=== PATIENT | male | born 1965 | race Hispanic/Latino ===

== ENCOUNTER 2024-09-28 09:30 | Inpatient (IN) | payer OTHER ==
[2024-09-21 12:02] LABS: APPEARANCE,URINE CLOUDY (CLEAR); BILIRUBIN,URINE NEGATIVE (NEGATIVE); COLOR,URINE YELLOW (YELLOW); GLUCOSE, URINE (UA) NEGATIVE (NEGATIVE); KETONES,URINE NEGATIVE (NEGATIVE); LEUKOCYTE ESTERASE ,URINE NEGATIVE Leu/uL (NEGATIVE); NITRATE,URINE NEGATIVE (NEGATIVE); OCCULT BLOOD,URINE NEGATIVE (NEGATIVE); PH,URINE 5.5 (5.0-8.0); PROTEIN,URINE 30 mg/dL (NEGATIVE); UROBILINOGEN,URINE 0.2 mg/dL (0.2-1.0)
[2024-09-21 12:36] LABS: INR 0.97 (0.85-1.15); PROTHROMBIN TIME 10.9 SEC (9.6-11.6)
[2024-09-21 12:38] LABS: PARTIAL THROMBOPLASTIN TIME 27.6 SEC (26.3-35.5)
[2024-09-21 12:44] VITALS: BP 156/86; PULSE 60; RESP 15; TEMP 97.9
--- NOTE | 2024-09-21 12:46 | NUR ---
report called dr moura to verify stop date for eliquis. as per 2 days is ok. pt notified
[2024-09-21 12:47] LABS: ADD UA MICROSCOPIC YES
[2024-09-21 12:50] LABS: MUCUS,URINE MANY LPF (None Seen); SQUAMOUS EPITHELIAL CELL,UR RARE /HPF (0-2)
[~2024-09-28] VITALS: Ht 167.6 cm; Wt 136.1 kg
[2024-09-28] VITALS (23 sets, daily range): BP systolic 116–146; BP diastolic 59–78; PULSE 52–61; RESP 15–20; TEMP 97.7–98.6; O2SAT 96–100
[~2024-09-28 09:30] MED LIST: AMIO200T68 PO; APIX5TAB PO; ATOR10TA69 PO; vit d PO
[2024-09-28] MEDS: ceFAZolin SODIUM 1 GM VIAL ONE (10:26)
[2024-09-28] MEDS: ceFAZolin SODIUM 2 GM VIAL ONE (10:26)
[2024-09-28] MEDS: LACTATED RINGERS 1000ML 1,000 ML IV ONE (10:26)
[2024-09-28] MEDS ORDERED: LOSA100T59 PO (10:29)
[2024-09-28] MEDS ORDERED: AMLO-258 PO (10:29)
[2024-09-28] MEDS ORDERED: METO25TA6 PO (10:29)
[2024-09-28] MEDS: acetaMINOPHEN 100 ML ONE (10:41)
[2024-09-28] MEDS: FAMOTIDINE 20MG VIAL IV ONE (10:41)
[2024-09-28] MEDS ORDERED: ROPivacaine 0.5% 5MG/ML 30ML ONE ×2 (10:42→15:08)
[2024-09-28] MEDS ORDERED: ketaMINE 50MG/ML SYRINGE 50 MG/ML DISP.SYRIN ONE (10:43)
[2024-09-28] MEDS ORDERED: LIDOCAINE HCL-MPF 2% 10ML AMP IJ ONE (10:44)
[2024-09-28] MEDS ORDERED: rocuRONium bROMide 10MG/1ML 5ML VL ONE ×3 (10:45→15:09)
[2024-09-28] MEDS ORDERED: FENTanyl CITRate PF 50 MCG/1 ML 2ML VIAL ONE ×3 (10:45→16:20)
[2024-09-28] MEDS ORDERED: proPOFol 10 MG/ML 20ML VIAL IV ONE (10:45)
[2024-09-28] MEDS ORDERED: ceFAZolin SODIUM 1 GM VIAL ONE (11:47)
[2024-09-28] MEDS ORDERED: TRANEXAMIC ACID 1000MG/10ML ONE ×2 (11:47)
[2024-09-28] MEDS ORDERED: VANCOMYCIN 500MG+NS 100ML 100 ML IV ONE (12:51)
[2024-09-28] MEDS: TRANEXAMIC ACID 1000MG/10ML IV ONE (12:52)
[2024-09-28] MEDS ORDERED: ePHEDrine SULFate 50 MG/ML AMPULE ONE (12:53)
[2024-09-28] MEDS ORDERED: GLYCOPYRROLATE 0.2 MG/ML 5 ML VIAL ONE (14:38)
[2024-09-28] MEDS: SUGAMMADEX SODIUM 200 MG/2 ML VIAL IV ONE (15:59)
[2024-09-28] MEDS ORDERED: PoTASSium chloRIDE 20MEQ/100ML 100 ML IV PRN (16:00)
[2024-09-28] MEDS ORDERED: PoTASSium chl 10% ELIXIR 20MEQ 20 MEQ/15 ML UDCUP PO PRN (16:00)
[2024-09-28] MEDS: acetaMINOPHEN 500 MG TABLET PO SCH (16:00)
[2024-09-28] MEDS ORDERED: DiphenhydrAMINE HCL 50 MG/ML VIAL IVP PRN (16:00)
[2024-09-28] MEDS ORDERED: PoTASSium chloRIDE 20MEQ ER 20 MEQ ERTAB PO PRN (16:00)
[2024-09-28] MEDS ORDERED: TEMAZepam 15 MG CAPSULE PO PRN (16:00)
[2024-09-28] MEDS ORDERED: FERROUS FUMARATE 324 MG TABLET PO PRN (16:00)
[2024-09-28] MEDS ORDERED: ondanSETRON 4MG INJ IVP PRN (16:00)
--- NOTE | 2024-09-28 16:12 | HMCIMG ---
HIP UNILAT 4VW RIGHT REASON: ORIF RIGHT [place], SX COMPARISON: None TECHNIQUE: 4 surgical spot views are obtained documenting a right total hip joint prosthesis placement. Fluoroscopy time was 33 seconds. IMPRESSION: 1. Documentation of right hip joint replacement procedure.
--- NOTE | 2024-09-28 16:18 | OP ---
Operative Note: DATE OF PROCEDURE: 09/28/24 SURGEON: JEREMIAS SMITH MD REHAB ASSISTANT: [JOSE VYAS CFA] ANESTHESIA: [General anesthesia plus regional block] ANESTHESIOLOGIST/CAR WIPER: [Low Zhao, CAR WIPER's] PREOPERATIVE DIAGNOSIS: [Right hip osteoarthritis] POSTOPERATIVE DIAGNOSIS: [Right hip osteoarthritis] IMPLANTS: [BIOMET taper lock femur size 10. G7 cup size 54. Hi wall acetabular liner size 36. Standard 36 femoral head] PROCEDURE: [Right total hip arthroplasty] ESTIMATED BLOOD LOSS: [500 mL] INDICATIONS: [The patient is a 58-year-old female with history of severe pain to the right hip secondary to severe arthrosis. The patient has been treated conservatively the past with no improvement and he has been admitted for a right total hip arthroplasty, procedure for which he is already familiar, knowing the risks, benefits and possible complications and agreed to sign the consent form] DESCRIPTION OF PROCEDURE: [After adequate general anesthesia was achieved and regional block obtained the patient was placed in the left lateral decubitus with the use of the beanbag and hip holders. The right lower extremity was prepped and draped in the usual manner after x-rays taken with the C-arm were used to check the position of the pelvis. After anatomic landmarks were identified we proceeded to make an incision in the skin centered on the greater trochanter and with a slight curve posteriorly followed by dissection of the subcutaneous tissue with the use of the Bovie cautery. The tensor fascia owen and gluteus ramy fascia were then opened longitudinally and the fibers of the gluteus muscle were split manually entering into the deep space applying then the Charnley retractor. The greater trochanter was exposed and a bone infusion needle was then inserted through this needle we proceeded to infused a solution of 500 mg of vancomycin diluted in 50 mL of normal saline solution. The bone infusion needle was removed. The posterior border of the gluteus medius was identified and elevated and a curved Hohmann retractor was inserted underneath to be able to expose the gluteus minimus and short external rotators. The interval between the piriformis and gluteus minimus was open with the use of the Bovie cautery and then the rotators and capsule were detached from their femoral neck insertion and retracted posteriorly entering into the hip joint. We then proceeded to dislocate the hip by flexing the hip and then internally rotating it and after retractors were applied to the base of the femoral neck we proceeded to use the oscillating saw to cut the neck at this level. We then proceeded to use a box osteotome to enter the canal followed by insertion of the canal finder and then we proceeded to broach from size up to above-mentioned size. At this point we removed the last broach and packed the canal for hemostasis and after the retractors were removed we proceeded then to bring the hip into extension. Hohmann retractors were then applied anteriorly and posteriorly to the acetabulum removing then the labrum and foveal tissue. We proceeded to ream the acetabulum medializing it obtaining adequate cortico- cancellous bone. After irrigation of the acetabulum was completed we proceeded then to apply the final component and x-rays were taken correcting the orientation of the acetabulum to its final position. Then a trial liner was inserted as well as a trial femur and then we proceeded to apply the trial femoral heads reducing the hip and taken x-rays until we identify the adequate size component using the marker to check the length and offset as well as clinically using the shuck test and measuring the leg length. Once we were satisfied we proceeded to remove the components from the femur and the trial liner after dislocating the hip and after copious irrigation of the joint was completed we then proceeded to apply the final liner followed by the insertion of the final femoral stem and femoral head. Once the hip was reduced we used a marker once again and the leg length and offset were normal and clinically the patient had normal length, negative shuck test and x-rays reveal adequate leg length compared to the opposite hip. The joint was then copiously irrigated with jet lavage once again and we then proceeded to take final x-rays and then to close the wound first with approximation of the capsule with #1 Vicryl simple stitches followed by approximation of the short external rotators with #2 PDS suture passing the sutures through the bone. The Charnley retractor was then removed and the gluteus ramy fascia was closed with a #1 Vicryl running stitch and the tensor fascia owen with #1 Vicryl crossed stitches. The subcutaneous tissue was with a deep layer consisting of Vicryl sutures and a superficial layer was closed with #2 Monocryl inverted stitches and the skin was closed with 3-0 Monocryl subcuticularly. A suction dressing was then applied t o the incision and the drapes were then removed the patient being placed in the supine position. Leg length was checked and noted to be adequate. The patient was then transferred to a hospital bed and taken to recovery room for follow-up by anesthesia. There were no complications during the procedure.] JEREMIAS SMITH MD Sep 28, 2024 16:18
--- NOTE | 2024-09-28 16:42 | NUR ---
PT eval attempted. Pt continues in surgery as of 1641. PT team to follow-up.
[2024-09-28] MEDS: ketOROlac 15MG/ML VIAL (15MG/ML) IV PRN (19:13)
[2024-09-28] MEDS: atorVAStatin 10 MG TABLET PO SCH (20:06)
[2024-09-28] MEDS: metoPROLOL tartRATE 25 MG TAB PO SCH (20:06)
[2024-09-28] MEDS: ceFAZolin SODIUM 2 GM VIAL IVPB SCH (20:07)
[2024-09-28] MEDS: 0.9%NACL 1000ML 1,000 ML IV SCH (20:08)
[2024-09-29] VITALS (8 sets, daily range): BP systolic 102–119; BP diastolic 49–63; PULSE 56–70; RESP 16–20; TEMP 98–99.1; O2SAT 94–100
[2024-09-29] MEDS: OXYcodONE HCL 5 MG TAB PO PRN ×2 (05:03→09:03)
[2024-09-29 05:16] LABS: CREATININE 0.9 mg/dL (0.5-1.3); POTASSIUM 3.9 mmol/L (3.5-5.1)
[2024-09-29 05:18] LABS: HEMATOCRIT 35.6 % (42-54); MEAN CORPUSCULAR HEMOGLOBIN 31.5 pg (27.0-33.0); MEAN CORPUSCULAR HGB CONC 33.4 g/dL (32.0-36.0); MEAN CORPUSCULAR VOLUME 94.2 fL (79-99); RED BLOOD CELL COUNT(AUTO) 3.78 MIL/uL (4.50-6.20); RED CELL DISTRIBUTION WIDTH 13.2 % (11.0-15.5); WHITE BLOOD COUNT (AUTO) 10.2 K/uL (4.8-10.8)
[2024-09-29] MEDS: CALCIUM CARB 500MG PO PRN (05:39)
--- NOTE | 2024-09-29 07:58 | PN ---
Ortho postop day one. This morning patient is awake alert oriented. He is in good spirits although he reports he had a rough night. He is already out of bed seated in a chair enjoying his breakfast and his is at his bedside. Vital signs are stable. He has low-grade temperature of 99.0 I have reinforce incentive spirometry. Laboratory results reviewed. Noted to have a drop in hemoglobin and hematocrit as expected after total hip arthroplasty patient is asymptomatic we will address per protocol as necessary. Operative findings discussed with the patient. Dressing is intact. Distal neurovascular intact. Negative Homans. Ice is present to the operative site. Voiding on his own without difficulty and already passing gas but yet to have a bowel movement. Patient voiced to me that he had considered going home for home health and is now reconsidering and wanting to be referred to inpatient rehab. We will direct this to case management. Therapy unable to ambulate yesterday and is pending therapy this morning. Assessment: Status post right total hip arthroplasty. Asymptomatic acute postoperative blood loss anemia. Plan: Continue with Dr. Paulino total hip arthroplasty protocol and discharge planning Asymptomatic acute postoperative blood loss anemia addressed with protocol as necessary Vitals/Labs Vital Signs Date Time Temp Pulse Resp B/P (MAP) Pulse Ox O2 Delivery O2 Flow Rate FiO2 09/29/24 04:00 99.0 59 20 113/59 95 Nasal Cannula 3.0 09/28/24 20:00 32 Laboratory Tests 09/29/24 04:49 Medications Current Medications Cefazolin Sodium 1 gm STK-MED ONCE .ROUTE; Start 09/28/24 at 09:40; Stop 09/28/24 at 09:41; Status DC Cefazolin Sodium 2 gm STK-MED ONCE .ROUTE; Start 09/28/24 at 09:40; Stop 09/28/24 at 09:41; Status DC Lactated Ringer's 1,000 ml @ As Directed STK-MED ONCE IV Last administered on 09/28/24at 10:26; Start 09/28/24 at 09:40; Stop 09/28/24 at 09:41; Status DC Acetaminophen 100 ml @ As Directed STK-MED ONCE .ROUTE; Start 09/28/24 at 10:41; Stop 09/28/24 at 10:41; Status DC Famotidine 20 mg STK-MED ONCE IV; Start 09/28/24 at 10:41; Stop 09/28/24 at 10:41; Status DC Ropivacaine 150 mg STK-MED ONCE .ROUTE; Start 09/28/24 at 10:42; Stop 09/28/24 at 10:43; Status DC Ketamine HCl 50 mg STK-MED ONCE .ROUTE; Start 09/28/24 at 10:43; Stop 09/28/24 at 10:43; Status DC Lidocaine HCl 1 ml STK-MED ONCE IJ; Start 09/28/24 at 10:44; Stop 09/28/24 at 10:45; Status DC Propofol 200 mg STK-MED ONCE IV; Start 09/28/24 at 10:45; Stop 09/28/24 at 10:45; Status DC Rocuronium [place] 50 mg STK-MED ONCE .ROUTE; Start 09/28/24 at 10:45; Stop 09/28/24 at 10:45; Status DC Fentanyl Citrate 100 mcg STK-MED ONCE .ROUTE; Start 09/28/24 at 10:45; Stop 09/28/24 at 10:46; Status DC Tranexamic Acid 1,000 mg STK-MED ONCE .ROUTE; Start 09/28/24 at 11:47; Stop 09/28/24 at 11:47; Status DC Tranexamic Acid 1,000 mg STK-MED ONCE .ROUTE; Start 09/28/24 at 11:47; Stop 09/28/24 at 11:48; Status DC Cefazolin Sodium 1 gm STK-MED ONCE .ROUTE; Start 09/28/24 at 11:47; Stop 09/28/24 at 11:48; Status DC Vancomycin HCl 100 ml @ As Directed STK-MED ONCE IV; Start 09/28/24 at 12:51; Stop 09/28/24 at 12:51; Status DC Ephedrine Sulfate 50 mg STK-MED ONCE .ROUTE; Start 09/28/24 at 12:53; Stop 09/28/24 at 12:54; Status DC Rocuronium [place] 50 mg STK-MED ONCE .ROUTE; Start 09/28/24 at 13:01; Stop 09/28/24 at 13:01; Status DC Tranexamic Acid 1,000 mg STK-MED ONCE IV Last administered on 09/28/24at 12:52; Start 09/28/24 at 12:52; Stop 09/28/24 at 14:05; Status DC Glycopyrrolate 1 mg STK-MED ONCE .ROUTE; Start 09/28/24 at 14:38; Stop 09/28/24 at 14:39; Status DC Ropivacaine 150 mg STK-MED ONCE .ROUTE; Start 09/28/24 at 15:08; Stop 09/28/24 at 15:08; Status DC Rocuronium [place] 50 mg STK-MED ONCE .ROUTE; Start 09/28/24 at 15:09; Stop 09/28/24 at 15:09; Status DC Sodium Chloride 1,000 ml @ 100 mls/hr Q10H IV Last administered on 09/29/24at 04:25; Start 09/28/24 at 16:00; Stop 09/29/24 at 15:59 Polyethylene Glycol 17 gm DAILY PO; Start 09/29/24 at 09:00; Stop 10/29/24 at 08:59 Bisacodyl 10 mg DAILY PRN RC; Start 10/01/24 at 16:00; Stop 10/31/24 at 15:59 Ketorolac Tromethamine 15 mg Q6H PRN IV Last administered on 09/28/24at 19:13; Start 09/28/24 at 16:00; Stop 10/03/24 at 15:59 Ferrous Fumarate 324 mg DAILY PRN PO; Start 09/28/24 at 16:00; Stop 10/28/24 at 15:59 Temazepam 15 mg HS PRN PO; Start 09/28/24 at 16:00; Stop 10/28/24 at 15:59 Calcium Carbonate 500 mg Q12H PRN PO Last administered on 09/29/24at 05:39; Start 09/28/24 at 16:00; Stop 10/28/24 at 15:59 Diphenhydramine HCl 25 mg Q6H PRN IVP; Start 09/28/24 at 16:00; Stop 10/28/24 at 15:59 Ondansetron HCl 4 mg Q6H PRN IVP; Start 09/28/24 at 16:00; Stop 10/28/24 at 15:59 Cefazolin Sodium 2 gm Q8H IVPB Last administered on 09/29/24at 04:25; Start 09/28/24 at 21:00; Stop 09/29/24 at 05:01; Status DC Potassium Chloride 100 ml @ 100 mls/hr AD PRN IV; Start 09/28/24 at 16:00; Stop 10/28/24 at 15:59 Potassium Chloride 20 meq AD PRN PO; Start 09/28/24 at 16:00; Stop 10/28/24 at 15:59 Potassium Chloride 20 meq AD PRN PO; Start 09/28/24 at 16:00; Stop 10/28/24 at 15:59 Oxycodone HCl 5 mg Q4H PRN PO Last administered on 09/29/24at 05:03; Start 09/28/24 at 16:00; Stop 10/05/24 at 15:59 Oxycodone HCl 10 mg Q4H PRN PO; Start 09/28/24 at 16:00; Stop 10/05/24 at 15:59 Tramadol HCl 50 mg Q6H PRN PO; Start 09/28/24 at 16:00; Stop 10/03/24 at 15:59 Acetaminophen 1,000 mg Q8H PO Last administered on 09/29/24at 07:40; Start 09/28/24 at 16:00; Stop 10/28/24 at 15:59 Fentanyl Citrate 100 mcg STK-MED ONCE .ROUTE; Start 09/28/24 at 16:08; Stop 09/28/24 at 16:09; Status DC Fentanyl Citrate 100 mcg STK-MED ONCE .ROUTE; Start 09/28/24 at 16:20; Stop 09/28/24 at 16:25; Status DC Amiodarone HCl 200 mg AM PO; Start 09/29/24 at 09:00; Stop 10/29/24 at 08:59 Apixaban 5 mg BID PO; Start 09/29/24 at 09:00; Stop 10/29/24 at 08:59 Atorvastatin Calcium 10 mg HS PO Last administered on 09/28/24at 20:06; Start 09/28/24 at 21:00; Stop 10/28/24 at 20:59 Losartan Potassium 100 mg DAILY PO; Start 09/29/24 at 09:00; Stop 10/29/24 at 08:59 Metoprolol Tartrate 25 mg BID PO Last administered on 09/28/24at 20:06; Start 09/28/24 at 21:00; Stop 10/28/24 at 20:59 Amlodipine Besylate 10 mg DAILY PO; Start 09/29/24 at 09:00; Stop 10/29/24 at 08:59 Home Med VIT D 25MCG QODAY PO; Start 09/30/24 at 09:00; Stop 10/30/24 at 08:59 YENNY MÉNDEZ NP Sep 29, 2024 07:58
[2024-09-29] MEDS: LoSARTan 100 MG TABLET PO SCH (09:02)
[2024-09-29] MEDS: polyETHYLene GLYCol 3350 17 GM POWD.PACK PO SCH (09:02)
[2024-09-29] MEDS: AMIOdarone 200 MG TABLET PO SCH (09:02)
[2024-09-29] MEDS: amLODIPine 5 MG TAB PO SCH (09:03)
[2024-09-29] MEDS: APIXaban 5 MG TABLET PO SCH (09:04)
--- NOTE | 2024-09-29 09:30 | NUR ---
Order received and patient seen and evaluated. Patient required maximal assistance to stand from chair this morning. Once up, patient required moderate assistance to walk secondary to left lower extremity weakness as well as RLE surgery. Recommend acute rehab post hospital. Addendum: 09/29/24 at 1008 by MAGDALENE DUMONT PT Amended: Links added.
--- NOTE | 2024-09-29 12:21 | NUR ---
DCP CM MET WITH PT THIS MORNING ASSESSMENT DONE. PATIENT IS INDEPENDENT PRIOR TO SURGERY, LIVES AT HOME WITH HIS . PATIENT VERBALIZED HE HAS A STANDARD WALKER, ROLLATOR WALKER, CANE, BPM. DENIES ANY OTHER EQUIPMENT/SERVICES. USES [facility]. FEELS SAFE TO GO BACK HOME, STILL DRIVE, ABLE TO ASSIST WITH TRANSPORTATION AND NEEDS NECESSARY. PT REQUESTING REHABILITATION AT [facility] AFTER DISCHARGE FOR REHAB. INFORMED PATIENT IF [facility] DOESN'T HAVE A BED WOULD HE CONSIDER STR/[facility], PT AGREEABLE FOR STR IF NO BED AT [facility], PT REQUEST CM TO INFORM PT FIRST BEFORE SENDING TO [facility] IF THERE'S NO BED. CONSENT SIGNED JOS[facility] FOR #1 [facility] AND #2 STR. DCP IRU ONCE APPROVED. CM SENT ORDER, CLINICALS, PT TO [facility] AND [facility] W/[facility] VIA SECURE FAX AND EMAIL, CONFIRMATION RECEIVED. CM SPOKE TO [facility], VERIFY IF THERE'S BED AVAILABLE TODAY/TOMORROW, PER [facility] THERE'S BED AVAILABLE TODAY AND TOMORROW. WILL COME EVALUATE PT AND SENT TO [facility] FOR AUTH ONCE THEIR MD ACCEPT PT. PT PENDING APPROVAL AND ACCEPTANCE. MOT SEMI-FILLED, PENDING TO COMPLETE ONCE AUTH RECEIVED. EMS FILLED OUT, PENDING TO FAX W/CURRENT DATE ONCE PT READY TO DC. PRIMARY NURSE JAVED MADE AWARE. DR SMITH UPDATED. CM TO CONTINUE TO FOLLOW UP. Addendum: 09/29/24 at 1226 by ELVIS SILVA LVN CM Amended: Links added.
--- NOTE | 2024-09-29 13:00 | NUR ---
ORTHO COORDINATOR: TEACHING REGARDING DVT AND PNEUMONIA PREVENTION, PAIN EXPECTATIONS AND PAIN MANAGEMENT. PATIENT UP TO CHAIR. NASAL CANNULA AT 2 LITERS. SCD SLEEVES AND MACHINE PRESENT IN ROOM. INCENTIVE SPIROMETER AT BEDSIDE. PATIENT INSTRUCTED TO UTILIZED INCENTIVE SPIROMETER AT THE MINIMUM EVERY 2 HOURS, 10 TIMES. RATIONALE PROVIDED. PATIENT VERBALIZED UNDERSTANDING. PATIENT RETURN DEMONSTRATED PROPER FOOT FLEXION AND EXTENSION EXERCISES, RATIONALE PROVIDED. NUMERIC PAIN SCALE REVIEWED. PAIN EXPECTATIONS SET. DISCUSSED PAIN MEDICATION AVAILABLE FOR PAIN FROM 1-10 AND THAT ALL PAIN MEDICATION NEEDED TO BE REQUESTED. PATIENT VERBALIZED UNDERSTANDING. PATIENT PLANS INPATIENT REHAB. NO ADDITIONAL QUESTIONS/CONCERNS AT THIS TIME. Addendum: 09/29/24 at 1713 by YADIRA MERCEDES RN RN REVIEWED USE OF ICE PACK. ICE PACK PROVIDED.
[2024-09-29] MEDS: traMADol HCL 50 MG TABLET PO PRN (13:03)
[2024-09-30 07:50] VITALS: BP 112/58; PULSE 74; RESP 18; TEMP 101.4
[2024-09-30 08:15] VITALS: O2SAT 95
--- NOTE | 2024-09-30 08:16 | PN ---
The patient is postop day 2., status post right total hip arthroplasty. His vital signs remained stable but he had a spike of temp today of 101. He is having moderate amount of pain in the thigh area. The pain is adequately controlled. No laboratories pending. The patient is awake, alert and oriented this morning sitting in the chair. His respiratory effort is normal he is in no distress. His dressing is intact. Distal neurovascular exam is normal. Assessment: Status post right total hip arthroplasty. Plan: The patient is awaiting approval from the [facility] to go to inpatient rehab. Continue with physical therapy and rehabilitation. Continue pain management and he has resumed his chronic anticoagulation therapy. Vitals/Labs Vital Signs Date Time Temp Pulse Resp B/P (MAP) Pulse Ox O2 Delivery O2 Flow Rate FiO2 09/30/24 07:50 101.5 74 18 112/58 95 Room Air 0.0 09/29/24 19:05 21 Medications Current Medications Cefazolin Sodium 1 gm STK-MED ONCE .ROUTE; Start 09/28/24 at 09:40; Stop 09/28/24 at 09:41; Status DC Cefazolin Sodium 2 gm STK-MED ONCE .ROUTE; Start 09/28/24 at 09:40; Stop 09/28/24 at 09:41; Status DC Lactated Ringer's 1,000 ml @ As Directed STK-MED ONCE IV Last administered on 09/28/24at 10:26; Start 09/28/24 at 09:40; Stop 09/28/24 at 09:41; Status DC Acetaminophen 100 ml @ As Directed STK-MED ONCE .ROUTE; Start 09/28/24 at 10:41; Stop 09/28/24 at 10:41; Status DC Famotidine 20 mg STK-MED ONCE IV; Start 09/28/24 at 10:41; Stop 09/28/24 at 10:41; Status DC Ropivacaine 150 mg STK-MED ONCE .ROUTE; Start 09/28/24 at 10:42; Stop 09/28/24 at 10:43; Status DC Ketamine HCl 50 mg STK-MED ONCE .ROUTE; Start 09/28/24 at 10:43; Stop 09/28/24 at 10:43; Status DC Lidocaine HCl 1 ml STK-MED ONCE IJ; Start 09/28/24 at 10:44; Stop 09/28/24 at 10:45; Status DC Propofol 200 mg STK-MED ONCE IV; Start 09/28/24 at 10:45; Stop 09/28/24 at 10:45; Status DC Rocuronium [place] 50 mg STK-MED ONCE .ROUTE; Start 09/28/24 at 10:45; Stop at 10:45; Status DC Fentanyl Citrate 100 mcg STK-MED ONCE .ROUTE; Start 09/28/24 at 10:45; Stop 09/28/24 at 10:46; Status DC Tranexamic Acid 1,000 mg STK-MED ONCE .ROUTE; Start 09/28/24 at 11:47; Stop 09/28/24 at 11:47; Status DC Tranexamic Acid 1,000 mg STK-MED ONCE .ROUTE; Start 09/28/24 at 11:47; Stop 09/28/24 at 11:48; Status DC Cefazolin Sodium 1 gm STK-MED ONCE .ROUTE; Start 09/28/24 at 11:47; Stop 09/28/24 at 11:48; Status DC Vancomycin HCl 100 ml @ As Directed STK-MED ONCE IV; Start 09/28/24 at 12:51; Stop 09/28/24 at 12:51; Status DC Ephedrine Sulfate 50 mg STK-MED ONCE .ROUTE; Start 09/28/24 at 12:53; Stop at 12:54; Status DC Rocuronium [place] 50 mg STK-MED ONCE .ROUTE; Start 09/28/24 at 13:01; Stop 09/28/24 at 13:01; Status DC Tranexamic Acid 1,000 mg STK-MED ONCE IV Last administered on 09/28/24at 12:52; Start 09/28/24 at 12:52; Stop 09/28/24 at 14:05; Status DC Glycopyrrolate 1 mg STK-MED ONCE .ROUTE; Start 09/28/24 at 14:38; Stop 09/28/24 at 14:39; Status DC Ropivacaine 150 mg STK-MED ONCE .ROUTE; Start 09/28/24 at 15:08; Stop 09/28/24 at 15:08; Status DC Rocuronium [place] 50 mg STK-MED ONCE .ROUTE; Start 09/28/24 at 15:09; Stop 09/28/24 at 15:09; Status DC Sodium Chloride 1,000 ml @ 100 mls/hr Q10H IV Last administered on 09/29/24at 04:25; Start 09/28/24 at 16:00; Stop 09/29/24 at 15:59; Status DC Polyethylene Glycol 17 gm DAILY PO Last administered on 09/29/24at 09:02; Start 09/29/24 at 09:00; Stop 10/29/24 at 08:59 Bisacodyl 10 mg DAILY PRN RC; Start 10/01/24 at 16:00; Stop 10/31/24 at 15:59 Ketorolac Tromethamine 15 mg Q6H PRN IV Last administered on 09/28/24at 19:13; Start 09/28/24 at 16:00; Stop 10/03/24 at 15:59 Ferrous Fumarate 324 mg DAILY PRN PO; Start 09/28/24 at 16:00; Stop 10/28/24 at 15:59 Temazepam 15 mg HS PRN PO; Start 09/28/24 at 16:00; Stop 10/28/24 at 15:59 Calcium Carbonate 500 mg Q12H PRN PO Last administered on 09/29/24at 05:39; Start 09/28/24 at 16:00; Stop 10/28/24 at 15:59 Diphenhydramine HCl 25 mg Q6H PRN IVP; Start 09/28/24 at 16:00; Stop 10/28/24 at 15:59 Ondansetron HCl 4 mg Q6H PRN IVP; Start 09/28/24 at 16:00; Stop 10/28/24 at 15:59 Cefazolin Sodium 2 gm Q8H IVPB Last administered on 09/29/24at 04:25; Start 09/28/24 at 21:00; Stop 09/29/24 at 05:01; Status DC Potassium Chloride 100 ml @ 100 mls/hr AD PRN IV; Start 09/28/24 at 16:00; Stop 10/28/24 at 15:59 Potassium Chloride 20 meq AD PRN PO; Start 09/28/24 at 16:00; Stop 10/28/24 at 15:59 Potassium Chloride 20 meq AD PRN PO; Start 09/28/24 at 16:00; Stop 10/28/24 at 15:59 Oxycodone HCl 5 mg Q4H PRN PO Last administered on 09/29/24at 15:10; Start 09/28/24 at 16:00; Stop 10/05/24 at 15:59 Oxycodone HCl 10 mg Q4H PRN PO Last administered on 09/30/24at 05:12; Start 09/28/24 at 16:00; Stop 10/05/24 at 15:59 Tramadol HCl 50 mg Q6H PRN PO Last administered on 09/29/24at 13:03; Start 09/28/24 at 16:00; Stop 10/03/24 at 15:59 Acetaminophen 1,000 mg Q8H PO Last administered on 09/29/24at 23:56; Start 09/28/24 at 16:00; Stop 10/28/24 at 15:59 Fentanyl Citrate 100 mcg STK-MED ONCE .ROUTE; Start 09/28/24 at 16:08; Stop 09/28/24 at 16:09; Status DC Fentanyl Citrate 100 mcg STK-MED ONCE .ROUTE; Start 09/28/24 at 16:20; Stop 09/28/24 at 16:25; Status DC Amiodarone HCl 200 mg AM PO Last administered on 09/29/24at 09:02; Start 09/29/24 at 09:00; Stop 10/29/24 at 08:59 Apixaban 5 mg BID PO Last administered on 09/29/24at 19:49; Start 09/29/24 at 09:00; Stop 10/29/24 at 08:59 Atorvastatin Calcium 10 mg HS PO Last administered on 09/29/24at 19:50; Start 09/28/24 at 21:00; Stop 10/28/24 at 20:59 Losartan Potassium 100 mg DAILY PO Last administered on 09/29/24at 09:02; Start 09/29/24 at 09:00; Stop 10/29/24 at 08:59 Metoprolol Tartrate 25 mg BID PO Last administered on 09/29/24at 19:49; Start 09/28/24 at 21:00; Stop 10/28/24 at 20:59 Amlodipine Besylate 10 mg DAILY PO Last administered on 09/29/24at 09:03; Start 09/29/24 at 09:00; Stop 10/29/24 at 08:59 Home Med VIT D 25MCG QODAY PO; Start 09/30/24 at 09:00; Stop 10/30/24 at 08:59 JEREMIAS SMITH MD Sep 30, 2024 08:16
[2024-09-30] MEDS: VIT D PO SCH (09:02)
[2024-09-30 11:58] VITALS: BP 104/44; PULSE 66; RESP 20; TEMP 98
[2024-09-30 12:30] LABS: INFLUENZA TYPE A Negative For Type A (NEGATIVE); INFLUENZA TYPE B Negative For Type B (NEGATIVE)
[2024-09-30 12:57] LABS: HEMATOCRIT 34.9 % (42-54); MEAN CORPUSCULAR HEMOGLOBIN 31.8 pg (27.0-33.0); MEAN CORPUSCULAR HGB CONC 32.7 g/dL (32.0-36.0); MEAN CORPUSCULAR VOLUME 97.5 fL (79-99); RED BLOOD CELL COUNT(AUTO) 3.58 MIL/uL (4.50-6.20); RED CELL DISTRIBUTION WIDTH 13.4 % (11.0-15.5); WHITE BLOOD COUNT (AUTO) 12.7 K/uL (4.8-10.8)
--- NOTE | 2024-09-30 14:45 | NUR ---
ORTHO COORDINATOR: REINFORCED TEACHING. PATIENT IN BED, AT BEDSIDE. PATIENT JUST COMPLETED PHYSICAL THERAPY. VOICED HE FEELS STRONGER AND MORE STABLE TODAY AND IS ABLE TO DO MORE. PATIENT REPORTS UTILIZING INCENTIVE SPIROMETER EVERY HOUR X 10. NASAL CANNULA DISCONTINUED. B SCD SLEEVES IN PLACE AND FUNCTIONING. ENCOURAGED PATIENT TO CONTINUE USE OF INCENTIVE SPIROMETRY WHILE IN INPATIENT REHAB AND TO CONTINUE PREMEDICATION PRIOR TO PHYSICAL THERAPY. FOOT FLEXION AND EXTENSION EXERCISES REVIEWED. PATIENT AND VERBALIZED UNDERSTANDING TO INSTRUCTIONS. PATIENT CONTINUES TO USE ICE PACKS. NO ADDITIONAL QUESTIONS OR CONCERNS AT THIS TIME.
[2024-09-30 16:00] VITALS: BP 143/69; PULSE 75; RESP 19; TEMP 98.7
[2024-09-30 20:00] VITALS: BP 123/59; PULSE 76; RESP 18; TEMP 98.8; O2SAT 0
[2024-09-30 23:11] LABS: SARS-CoV-2, RNA, NAAT NEGATIVE SARS CoV-2 (NEGATIVE)
[2024-09-30 23:56] VITALS: BP 133/65; PULSE 78; RESP 18; TEMP 99.2
[2024-10-01 04:00] VITALS: BP 132/72; PULSE 87; RESP 19; TEMP 98.2
[2024-10-01 08:00] VITALS: BP 114/66; PULSE 68; RESP 17; TEMP 98.4
[2024-10-01 08:50] VITALS: TEMP 98
[2024-10-01 12:00] VITALS: BP 132/73; PULSE 65; RESP 17; TEMP 98.8
--- NOTE | 2024-10-01 12:00 | NUR ---
ORTHO COORDINATOR: REINFORCED TEACHING. PATIENT UP TO CHAIR, JUST COMPLETED PHYSICAL THERAPY. SIGNIFICANT OTHER AT BEDSIDE. PENDING DISCHARGE, PLACED AT [facility]. REINFORCED NEED TO CONTINUE INCENTIVE SPIROMETRY, FOOT FLEXION/EXTENSION EXERCISES AND PREMEDICATE PRIOR TO PHYSICAL THERAPY OR PERIODS OF HIGH ACTIVITY. PATIENT AND VERBALIZED UNDERSTANDING. NO ADDITIONAL QUESTIONS/CONCERNS. 1210 REPORT TO PRIMARY NURSE. REQUEST TO ASSIST PATIENT WITH SHOWER. PRIMARY NURSE ACKNOWLEDGED COMMUNICATION.
--- NOTE | 2024-10-01 13:36 | DS ---
DISCHARGE SUMMARY [Date of admission: 09/28/2024 Date of discharge: 10/02/2024 Final diagnosis: Right hip osteoarthritis Surgical procedures: Right total hip arthroplasty on 09/28/2024 Summary of History and Physical: The patient is a 58 year-old morbidly obese male with history of severe arthrosis to the right hip that has been present for several years and has been treated conservatively with no longer adequate response to treatment. The patient is being admitted for total hip arthroplasty. Previous medical history: Hyperlipidemia, hypertension, obesity, osteoarthritis. Atrial fibrillation history, on chronic anticoagulation Previous surgical history: Left total hip arthroplasty 2013 Family history: Not relevant Social history: Negative for use of tobacco, drinks alcohol monthly. Allergies: NKDA. Review of system: Negative on admission Hospital course: The patient was admitted and taken to the operating room for a total hip arthroplasty, procedure that went uneventful. Postoperatively the patient remained hemodynamically stable and afebrile. The patient received antibiotic and anticoagulation prophylaxis as per protocol. The patient was evaluated by physical therapy and started rehabilitation treatment with ambula tion with the use of walker, weightbearing as tolerated, hip precautions, range of motion exercises and bed transfers. The patient was also evaluated by case management and arrangements were made for discharge to an inpatient rehab. The patient tolerated diet well. On postop day # 3 all the arrangements were completed but the patient has a history of fever the morning and it was requested by the rehab facility to do a workup. Laboratory workup was done and all was negative including COVID and the patient did not presented another episode of fever. On postop day 4. He was discharged. Condition on discharge: Good Disposition: The patient will be dismissed to [facility] inpatient rehab. Follow-up will be done at the office in 3 weeks. The patient is to continue with physical therapy and rehabilitation at facility and be ambulatory with the use of a walker, weightbearing as tolerated and continue with hip precautions. Continue taking pain medication as instructed as well as anticoagulation. Cont inue with home medications also as instructed and continue with pre admission diet.] JEREMIAS SMITH MD] JEREMIAS SMITH MD Oct 01, 2024 13:36
[2024-10-01] MEDS ORDERED: BisaCODYL 10 MG SUPP.RECT RC PRN (16:00)
== END 2024-10-01 16:45 | DRG 470 ==
LOC: DAH 09:30 → DAHIP 09:31 → OBSVTOIN 09:31 → DAH 09:31 → 4BH 17:25
PROVIDERS: ADMIT Orthopaedic Surgery; ATTEND Orthopaedic Surgery
PROC: 0SR90JZ Replacement of Right Hip Joint with Synthetic Substitute, Open Approach (ICD-10-PCS; principal; 2024-09-28 12:20)
DX: M16.11 Unilateral primary osteoarthritis, right hip (principal); D62 Acute posthemorrhagic anemia; Z68.42 Body mass index [BMI] 45.0-49.9, adult; I48.91 Unspecified atrial fibrillation; Z20.822 Contact with and (suspected) exposure to COVID-19; E78.5 Hyperlipidemia, unspecified; Z96.642 Presence of left artificial hip joint; I10 Essential (primary) hypertension; E66.01 Morbid (severe) obesity due to excess calories; Z79.01 Long term (current) use of anticoagulants; Z79.899 Other long term (current) drug therapy
CPT/HCPCS: 36415; 73503; 80048; 81001; 85027; 85610; 85730; 87635; 87641; 87804; 88304; 88311; C1713; G0378; J0690; J1885; J2704; J2795; J3010; J3370; J3490; J7120; A4215; A4216; A4221; A4222; A4223; A4649; A4663; A4930; A5120; A9272; C1769; C1776